=== PATIENT | male | born 1985 | race Caucasian/White ===

== ENCOUNTER 2018-04-03 01:37 | Emergency (ER) | payer SELFPAY ==
[2018-04-03 01:47] VITALS: BP 146/100
--- NOTE | 2018-04-03 02:19 | ER Document Report ---
ED General - General Chief Complaint: Toothache Stated Complaint: TOOTHACHE Time Seen by Provider: 04/03/18 02:18 Notes: Patient is a 32-year-old male that presents to the emergency department for chief complaint of dental pain. Patient states that this pain started a few hours ago and was getting worse, so he decided to come to the emergency department. He describes the pain as an aching sensation in his right upper wisdom tooth, he states that he said issues with that over time its been on and off over the last month, but it has been constant this evening so he decided come to the emergency department. He currently rates the pain as a 4 out of 10. He did take Tylenol and some NyQuil prior to ED arrival which did seem to improve his symptoms. Denies noting any fevers, chills, night sweats, nausea, vomiting. He has not seen a dentist in 15 years, but states that he will follow -up if needed. Past Medical History: Denies chronic medical conditions Past Surgical History: Denies surgical history Social History: Admits to rare alcohol use, denies tobacco or drug use. Family History: Reviewed and noncontributory for presenting illness Allergies: Reviewed, see documented allergy list. REVIEW OF SYSTEMS: Unless otherwise stated in this report the patient's positive and negative responses for review of systems for constitutional, eyes, ENT, cardiovascular, respiratory, gastrointestinal, neurological, genitourinary, musculoskeletal, and integumentary systems and related systems to the presenting problem are either as stated in the HPI or were not pertinent or were negative for the symptoms and/or complaints related to the presenting medical problem. PHYSICAL EXAMINATION: Vital signs reviewed, nursing noted reviewed. GENERAL: Well-appearing, well-nourished and in no acute distress. HEAD: Atraumatic, normocephalic. EYES: Eyes appear normal, extraocular movements intact, sclera anicteric, conjunctiva are normal. ENT: nares patent, oropharynx clear without exudates. Moist mucous membranes. The tooth #1 is fractured laterally, no evidence of abscess or infection at this time, tender to palpate with the tongue blade, there is a large dental carry in tooth #16 as well, but this is nontender to palpate. The rest of the dentition is grossly unremarkable. NECK: Normal range of motion, supple without lymphadenopathy LUNGS: Breath sounds clear to auscultation bilaterally and equal. No wheezes rales or rhonchi. HEART: Regular rate and rhythm without murmurs ABDOMEN: Soft, nontender, normoactive bowel sounds. No rebound, guarding, or rigidity. No masses appreciated. EXTREMITIES: Nontender, good range of motion, no pitting or edema. NEUROLOGICAL: No focal neurological deficits. Moves all extremities spontaneously Motor and sensory grossly intact on exam. PSYCH: Normal mood, normal affect. SKIN: Warm, Dry, normal turgor, no rashes or lesions noted on exposed skin TRAVEL OUTSIDE OF THE [place] IN LAST 30 DAYS: No Past Medical History - Social History Smoking Status: Former Smoker Chew tobacco use (# tins/day): No Frequency of alcohol use: Rare Drug Abuse: None Family History: Reviewed & Not Pertinent Patient has suicidal ideation: No Patient has homicidal ideation: No Renal/ Medical History: Denies: Hx Peritoneal Dialysis Physical Exam - Vital signs Vitals: Temp Pulse BP Pulse Ox 98.0 F 102 H 146/100 H 97 04/03/18 01:45 04/03/18 01:45 04/03/18 01:45 04/03/18 01:45 Course - Re-evaluation Re-evalutation: Patient's exam consistent with a fractured tooth, and dental pain as a result, placed the patient on antibiotics as it may have been exposed nerve root, given a dose of Oxy IR 5mg in the emergency department and prescribed naproxen as well as Pen-Vee K. He is advised to follow-up with dentistry and given a referral. Patient agreeable to plan of care. - Vital Signs Vital signs: Temp Pulse Resp BP Pulse Ox 98.0 F 102 H 146/100 H 97 04/03/18 01:45 04/03/18 01:45 04/03/18 01:45 04/03/18 01:45 Discharge - Discharge Clinical Impression: Pain, dental Fractured tooth Qualifiers: Encounter type: initial encounter Fracture type: closed Qualified Code(s): S02.5XXA - Fracture of tooth (traumatic), initial encounter for closed fracture Condition: Stable Disposition: HOME, SELF-CARE Instructions: Penicillin V K ([facility]), Toothache ([facility]) Additional Instructions: PLEASE FOLLOWUP WITH [facility]: [address] [address] CALL FOR APPOINTMENT. Prescriptions: Naproxen [Naprosyn] 500 mg PO Q12H PRN #15 tablet PRN Reason: dental pain Penicillin V Potassium [Penicillin Vk 500 mg Tablet] 500 mg PO QID #28 tablet Referrals: [facility] [Provider Group] - Follow up as needed
[2018-04-03] MEDS ORDERED: OXYCODONE HCL IR 5 MG TABLET PO ONE (02:33)
[2018-04-03] MEDS ORDERED: PENICILLIN V POTASSIUM 500 MG TABLET PO ONE (02:34)
== END 2018-04-03 02:52 | disposition home or self-care (01) ==
LOC: ER 01:37
DX: K08.9 Disorder of teeth and supporting structures, unspecified (principal); S02.5XXA Fracture of tooth (traumatic), initial encounter for closed fracture; X58.XXXA Exposure to other specified factors, initial encounter
CPT/HCPCS: 99282